=== PATIENT | male | born 1960 | race African-American/Black ===

== ENCOUNTER 2024-09-10 03:41 | Emergency (ER) | payer MEDICAID, OTHER ==
[~2024-09-10] VITALS: Ht 182.9 cm; Wt 100.0 kg
[2024-09-10 03:43] VITALS: O2SAT 100
[2024-09-10] MEDS: ACETAMINOPHEN 325MG TABLET PO ONE (06:51)
[2024-09-10 09:17] VITALS: BP 129/84; PULSE 67; RESP 18; TEMP 36.7; O2SAT 100
== END 2024-09-10 09:20 | disposition home or self-care (01) ==
LOC: ER 03:41
DX: S09.90XA Unspecified injury of head, initial encounter (principal); M25.562 Pain in left knee; M25.572 Pain in left ankle and joints of left foot; Z96.652 Presence of left artificial knee joint; V13.4XXA Pedal cycle driver injured in collision with car, pick-up truck or van in traffic accident, initial encounter; Y93.55 Activity, bike riding; Y92.89 Other specified places as the place of occurrence of the external cause; Y99.8 Other external cause status
CPT/HCPCS: 73562; 73610; 93005; 99284